=== PATIENT | female | born 1950 | race Caucasian/White ===

== ENCOUNTER 2016-12-11 19:44 | Emergency (ER) | payer MEDICARE ==
[2015-08-14 10:02] VITALS: BMI 43.8
[~2016-12-11 19:44] MED LIST: ATIVAN1 MG PO; CLEOCIN HCL300 MG PO; EFFEXOR75 MG PO; HYDROCODONE-APA1 TAB PO; LEVAQUIN PREMI750 MG PO; LEVAQUIN750 MG PO; MACROBID100 MG PO; NEURONTIN 100100 MG PO; NEURONTIN 300300 MG PO; NEURONTIN600 MG PO; NORCO 7.5/325 T1 TA1 PO; PRILOSEC20 MG PO; PROAIR HFA8.5 GM INH; PROZAC20 MG PO
[2016-12-11 20:42] LABS: BASOPHILS 0.2 % (0.0-2.0); EOSINOPHILS 0.2 % (0-7); HEMATOCRIT 40.3 % (36.0-48.0); HEMOGLOBIN 13.6 g/dL (12-16); IMMATURE GRANULOCYTES 0.4 % (0-5); LYMPHOCYTES 18.8 % (15-50); MCH 31.9 pg (26.0-34.0); MCHC 33.7 g/dL (31.0-37.0); MCV 94.6 fL (80.0-100.0); MEAN PLATELET VOLUME 10.4 fL (7.4-10.4); MONOCYTES 6.6 % (2-11); NEUTROPHILS 73.8 % (40-80); PLATELET COUNT 221 10x3/uL (130-400); RBC 4.26 10x6/uL (4.00-5.40); RDW 12.7 % (11.5-14.5); WBC 10.9 10x3/uL (4.8-10.8)
[2016-12-11 20:53] LABS: ALBUMIN 4.2 g/dL (3.4-5.0); ANION GAP 15.3 mmol/L (8-16); BILIRUBIN - TOTAL 0.62 mg/dL (0.2-1.3); CALCIUM 10.3 mg/dL (8.5-10.1); CARBON DIOXIDE 27.3 mmol/L (21.0-32.0); CREATININE - SERUM 0.9 mg/dL (0.6-1.3); POTASSIUM - SERUM 3.6 mmol/L (3.5-5.1); PROTEIN - SERUM 8.4 g/dL (6.4-8.2)
[2016-12-11 23:31] LABS: APPEARANCE HAZY (CLEAR); BILIRUBIN NEGATIVE (NEGATIVE); COLOR YELLOW (YELLOW); GLUCOSE NEGATIVE (NEGATIVE); KETONE SMALL mg/dL (NEGATIVE); LEUKOCYTE ESTERASE NEGATIVE (NEGATIVE); NITRITE NEGATIVE (NEGATIVE); PROTEIN TRACE mg/dL (NEGATIVE); UROBILINOGEN NORMAL (NORMAL)
[2016-12-11 23:32] LABS: BACTERIA FEW /hpf (NONE SEEN); RED CELLS - URINE 0-5 /hpf (0-5)
== END 2016-12-12 03:00 | disposition home or self-care (01) ==
LOC: D.ER 19:44
PROVIDERS: Emergency Medicine
DX: R10.9 Unspecified abdominal pain (principal); N23 Unspecified renal colic; C50.919 Malignant neoplasm of unspecified site of unspecified female breast; F32.9 Major depressive disorder, single episode, unspecified; M79.7 Fibromyalgia; I45.10 Unspecified right bundle-branch block

== ENCOUNTER → 2017-02-03 09:53 | Outpatient (CLI) | payer MEDICARE ==
[2015-08-14 10:02] VITALS: BMI 43.8
== END | disposition home or self-care (01) ==
LOC: D.CT 09:53
DX: R10.11 Right upper quadrant pain (principal); Z85.3 Personal history of malignant neoplasm of breast

== ENCOUNTER 2017-02-24 11:13 | Outpatient (CLI) | payer MEDICARE ==
[2015-08-14 10:02] VITALS: BMI 43.8
== END 2017-02-24 13:49 ==
LOC: D.MAMMO 11:13
DX: R92.8 Other abnormal and inconclusive findings on diagnostic imaging of breast (principal)

== ENCOUNTER 2017-03-03 15:53 | Emergency (ER) | payer MEDICARE ==
[2015-08-14 10:02] VITALS: BMI 43.8
[2017-03-03 16:39] LABS: BASOPHILS 0.3 % (0-2); EOSINOPHILS 2.9 % (0-7); HEMATOCRIT 40.6 % (36.0-48.0); HEMOGLOBIN 13.4 g/dL (12-16); IMMATURE GRANULOCYTES 0.4 % (0-5); LYMPHOCYTES 24.8 % (15-50); MCH 32.2 pg (26.0-34.0); MCV 97.6 fL (80.0-100.0); MEAN PLATELET VOLUME 10.4 fL (7.4-10.4); MONOCYTES 9.1 % (2-11); NEUTROPHILS 62.5 % (40-80); PLATELET COUNT 213 10x3/uL (130-400); RBC 4.16 10x6/uL (4.00-5.40); RDW 12.7 % (11.5-14.5); WBC 9.7 10x3/uL (4.8-10.8)
[2017-03-03 17:33] LABS: ALBUMIN 3.8 g/dL (3.4-5.0); ANION GAP 13.1 mmol/L (8-16); BILIRUBIN - TOTAL 0.37 mg/dL (0.2-1.3); CALCIUM 8.8 mg/dL (8.5-10.1); CARBON DIOXIDE 27.8 mmol/L (21.0-32.0); CREATININE - SERUM 1.1 mg/dL (0.6-1.3); POTASSIUM - SERUM 3.9 mmol/L (3.5-5.1); PROTEIN - SERUM 7.2 g/dL (6.4-8.2)
[2017-03-03 17:48] LABS: APPEARANCE CLOUDY (CLEAR); COLOR YELLOW (YELLOW); LEUKOCYTE ESTERASE 1+ (NEGATIVE); SPECIFIC GRAVITY 1.015 (1.005-1.020)
[2017-03-03 17:49] LABS: BILIRUBIN NEGATIVE (NEGATIVE); GLUCOSE NEGATIVE (NEGATIVE); KETONE NEGATIVE (NEGATIVE); NITRITE POSITIVE (NEGATIVE); PROTEIN NEGATIVE (NEGATIVE); UROBILINOGEN NORMAL (NORMAL)
[2017-03-03 17:51] LABS: EPITHELIAL CELLS 0-5 /hpf (0-5); RED CELLS - URINE NONE SEEN /hpf (0-5)
[2017-03-03 17:52] LABS: BACTERIA MANY /hpf (NONE SEEN)
== END 2017-03-03 17:56 | disposition home or self-care (01) ==
LOC: D.ER 15:53
PROVIDERS: Nurse Practitioner Acute Care
DX: J01.90 Acute sinusitis, unspecified (principal); R42 Dizziness and giddiness; Z91.81 History of falling; C50.919 Malignant neoplasm of unspecified site of unspecified female breast

== ENCOUNTER 2017-04-01 11:32 | Emergency (ER) | payer MEDICARE ==
[2015-08-14 10:02] VITALS: BMI 43.8
[2017-04-01 12:28] LABS: BASOPHILS 0.5 % (0-2); HEMATOCRIT 40.5 % (36.0-48.0); HEMOGLOBIN 13.5 g/dL (12-16); IMMATURE GRANULOCYTES 0.2 % (0-5); LYMPHOCYTES 25.4 % (15-50); MCH 32.1 pg (26.0-34.0); MCHC 33.3 g/dL (31.0-37.0); MCV 96.2 fL (80.0-100.0); MEAN PLATELET VOLUME 9.9 fL (7.4-10.4); MONOCYTES 8.4 % (2-11); NEUTROPHILS 62.5 % (40-80); PLATELET COUNT 182 10x3/uL (130-400); RBC 4.21 10x6/uL (4.00-5.40); RDW 12.6 % (11.5-14.5); WBC 6.4 10x3/uL (4.8-10.8)
[2017-04-01 12:31] LABS: APPEARANCE CLEAR (CLEAR); BACTERIA MODERATE /hpf (NONE SEEN); BILIRUBIN NEGATIVE (NEGATIVE); COLOR YELLOW (YELLOW); EPITHELIAL CELLS 0-5 /hpf (0-5); GLUCOSE NEGATIVE (NEGATIVE); KETONE NEGATIVE (NEGATIVE); LEUKOCYTE ESTERASE TRACE (NEGATIVE); NITRITE NEGATIVE (NEGATIVE); PROTEIN NEGATIVE (NEGATIVE); RED CELLS - URINE OCC /hpf (0-5); UROBILINOGEN NORMAL (NORMAL); WHITE CELLS - URINE 0-5 /hpf (0-5)
[2017-04-01 12:44] LABS: ALBUMIN 3.9 g/dL (3.4-5.0); ALKALINE PHOSPHATASE 113 U/L (46-116); ALT (SGPT) 28 U/L (10-68); BILIRUBIN - TOTAL 0.67 mg/dL (0.2-1.3); CALC OSMOLALITY 285 mosm/kg (275-300); CALCIUM 8.8 mg/dL (8.5-10.1); CARBON DIOXIDE 29.4 mmol/L (21.0-32.0); CHLORIDE - SERUM 104 mmol/L (98-107); CREATININE - SERUM 0.8 mg/dL (0.6-1.3); GLUCOSE 127 mg/dL (74-106); POTASSIUM - SERUM 3.7 mmol/L (3.5-5.1); PROTEIN - SERUM 7.7 g/dL (6.4-8.2); SODIUM 142 mmol/L (136-145); UREA NITROGEN 15 mg/dL (7-18); eGFR NON AFRICAN AMERICAN 76 mL/min (90-120)
[2017-04-01 12:55] LABS: CKMB 0.3 U/L (0.0-3.6); CREATINE KINASE 42 UL (21-215)
[2017-04-01 13:08] LABS: TROPONIN-I < 0.017 ng/mL (0.000-0.060)
== END 2017-04-01 13:44 | disposition home or self-care (01) ==
LOC: D.ER 11:32
PROVIDERS: Family Medicine
DX: R53.1 Weakness (principal); N39.0 Urinary tract infection, site not specified; Z85.3 Personal history of malignant neoplasm of breast; F32.9 Major depressive disorder, single episode, unspecified; F17.200 Nicotine dependence, unspecified, uncomplicated

== ENCOUNTER 2017-04-07 10:11 | Day surgery (SDC) | payer MEDICARE ==
[~2017-04-07] VITALS: Ht 147.3 cm; Wt 95.9 kg
--- NOTE | ~2017-04-07 | OP ---
PATIENT NAME: MILLER MEYERS MEDICAL RECORD: [id number] :48 LOCATION:D.OPS ADMISSION DATE: SURGEON: DREW SCOTT DO DATE OF OPERATION: 04/07/2017 PROCEDURE: Colonoscopy with polypectomy and biopsies. INDICATIONS FOR PROCEDURE: Hematochezia and lower abdominal pain. SCOPE: Olympus video pediatric colonoscope. MEDICATIONS: Propofol 800 mg IV per anesthesia. WITHDRAWAL TIME: 17 minutes. ESTIMATED BLOOD LOSS: Minimal. COMPLICATIONS: None. FINDINGS: Informed consent was given. The patient was made comfortable with the above medication. After reaching an adequate level of sedation by slow IV push, the patient was placed on her left side. A digital rectal examination was performed and was normal. The endoscope was then advanced under direct visualization to the terminal ileum. The scope was slowly withdrawn and mucosa was carefully examined. Prep quality was excellent. In the ascending colon, there was a single polyp which measured approximately 9 mm in size. It was benign appearing and sessile. It was removed in 1 piece and completely retrieved after removal with a hot snare. There was a second polyp located in the descending colon which was benign appearing and sessile. It measured approximately 5 mm in diameter. It was removed with a hot snare and was not retrieved. In the descending and sigmoid colon, there was evidence of moderate diverticulosis. There was some redundancy of the colon in the sigmoid region which made passage of the endoscope difficult. The patient was placed on her back for a short period of time until the cecum was reached. Very mild counter pressure was used shortly. In the rectum, there were some erythematous sites consistent with possible proctitis. Biopsies were taken of this area to submit for histology. Retroflexion was performed in the rectum with visualization of small nonbleeding internal hemorrhoids. The scope was then withdrawn from the patient. The patient tolerated the procedure well and there were no complications. IMPRESSION: 1. Two polyps as described above, removed with hot snare. 2. Diverticulosis. 3. Internal hemorrhoids. 4. Possible proctitis with biopsies pending. PLAN AND RECOMMENDATIONS: 1. Discharge home when recovery parameters are met. 2. High fiber diet. 3. Continue current medications. 4. Follow up in GI clinic as needed. 5. Await biopsy results with further recommendations to follow if there are abnormalities within those results. 6. Expect to repeat colonoscopy in 5 years based on the number and types of OPERATIVE REPORT [id number] MILLER MEYERS polyps removed. TRANSINT:[id number] Voice Confirmation ID: [id number] DOCUMENT ID: [id number] DREW SCOTT DO CC: [id number] DICTATION DATE: 04/07/17 133 MEAL ATTENDANT: 04/07/17 190 [facility] 04/07/[address] [facility] [address] [id number]
[2017-04-07] MEDS ORDERED: OXYBUTYNIN15 MG/BOTT PO (10:41)
[2017-04-07] MEDS ORDERED: PROTONIX40 MG PO (10:41)
[2017-04-07] MEDS ORDERED: PERCOCET 5-3251 TAB PO (10:41)
[2017-04-07] MEDS ORDERED: ZANTAC150 MG PO (10:42)
[2017-04-07] MEDS ORDERED: MOVANTIK25 MG PO (10:43)
[2017-04-07 10:44] VITALS: Ht 147.3 cm; Wt 95.9 kg
[2017-04-07 11:58] LABS: BASOPHILS 0.5 % (0-2); EOSINOPHILS 0.5 % (0-7); HEMATOCRIT 40.2 % (36.0-48.0); HEMOGLOBIN 13.6 g/dL (12-16); IMMATURE GRANULOCYTES 0.2 % (0-5); LYMPHOCYTES 17.3 % (15-50); MCH 32.1 pg (26.0-34.0); MCHC 33.8 g/dL (31.0-37.0); MCV 94.8 fL (80.0-100.0); MEAN PLATELET VOLUME 10.3 fL (7.4-10.4); NEUTROPHILS 74.5 % (40-80); RBC 4.24 10x6/uL (4.00-5.40); RDW 12.5 % (11.5-14.5); WBC 8.2 10x3/uL (4.8-10.8)
[2017-04-07 12:06] LABS: PLATELET COUNT 226 10x3/uL (130-400)
[2017-04-07 12:11] LABS: ANION GAP 17.2 mmol/L (8-16); CALCIUM 9.2 mg/dL (8.5-10.1); CARBON DIOXIDE 24.8 mmol/L (21.0-32.0); CREATININE - SERUM 0.9 mg/dL (0.6-1.3)
--- NOTE | 2017-04-07 15:28 | NUR ---
1410 FULL LIQUID TRAY GIVEN 1440 PIV DC W/CATHETER TIP INTACT DC TEACHING COMPLETE CALLING FOR RIDE 1515 RIDE PRESENT DC VIA WC W/FRIEND TO ASSIST LIVING PERSONAL FROM FACILITY DRIVING
== END 2017-04-07 15:15 | disposition home or self-care (01) ==
LOC: D.OPS 10:11
PROVIDERS: Anesthesiology
DX: D12.4 Benign neoplasm of descending colon (principal); K92.1 Melena; D12.2 Benign neoplasm of ascending colon; E66.01 Morbid (severe) obesity due to excess calories; Z68.41 Body mass index [BMI] 40.0-44.9, adult; Z01.812 Encounter for preprocedural laboratory examination

== ENCOUNTER 2017-04-21 19:23 | Emergency (ER) | payer MEDICARE ==
[2017-04-07 10:44] VITALS: BMI 44.2
[~2017-04-21 19:23] MED LIST changes: +MOVANTIK25 MG PO; +OXYBUTYNIN15 MG/BOTT PO; +PERCOCET 5-3251 TAB PO; +PROTONIX40 MG PO; +ZANTAC150 MG PO
[2017-04-21 20:28] LABS: BASOPHILS 0.4 % (0-2); HEMATOCRIT 39.7 % (36.0-48.0); HEMOGLOBIN 13.2 g/dL (12-16); IMMATURE GRANULOCYTES 0.3 % (0-5); LYMPHOCYTES 27.1 % (15-50); MCH 31.8 pg (26.0-34.0); MCHC 33.2 g/dL (31.0-37.0); MCV 95.7 fL (80.0-100.0); MEAN PLATELET VOLUME 10.1 fL (7.4-10.4); MONOCYTES 7.8 % (2-11); NEUTROPHILS 62.4 % (40-80); PLATELET COUNT 213 10x3/uL (130-400); RBC 4.15 10x6/uL (4.00-5.40); RDW 12.6 % (11.5-14.5); WBC 10.3 10x3/uL (4.8-10.8)
[2017-04-21 20:35] LABS: INR 1.03 (0.85-1.17); PROTIME 13.3 SECONDS (11.6-15.0)
[2017-04-21 20:44] LABS: ALBUMIN 3.8 g/dL (3.4-5.0); ANION GAP 14.9 mmol/L (8-16); BILIRUBIN - TOTAL 0.3 mg/dL (0.2-1.3); CALCIUM 8.9 mg/dL (8.5-10.1); CARBON DIOXIDE 27.6 mmol/L (21.0-32.0); CREATININE - SERUM 1.1 mg/dL (0.6-1.3); POTASSIUM - SERUM 3.5 mmol/L (3.5-5.1); PROTEIN - SERUM 7.8 g/dL (6.4-8.2)
== END 2017-04-21 23:13 | disposition home or self-care (01) ==
LOC: D.ER 19:23
PROVIDERS: Nurse Practitioner Family
DX: S80.02XA Contusion of left knee, initial encounter (principal); W07.XXXA Fall from chair, initial encounter; Y93.89 Activity, other specified; Y92.129 Unspecified place in nursing home as the place of occurrence of the external cause; S70.01XA Contusion of right hip, initial encounter; M25.511 Pain in right shoulder

== ENCOUNTER 2018-04-17 08:00 | Outpatient (CLI) | payer MEDICARE ==
[2017-04-07 10:44] VITALS: BMI 44.2
== END 2018-04-17 09:00 | disposition home or self-care (01) ==
LOC: D.MAMMO 08:00
DX: Z12.31 Encounter for screening mammogram for malignant neoplasm of breast (principal)

== ENCOUNTER 2018-05-20 09:42 | Inpatient (IN) | payer MEDICARE ==
[~2018-05-20] VITALS: Ht 147.3 cm; Wt 86.4 kg
[2018-05-20] VITALS (7 sets, daily range): BP systolic 120–158; BP diastolic 60–88; Ht 147.3 cm; Wt 86.4 kg
[2018-05-20 10:41] LABS: ALBUMIN 3.8 g/dL (3.4-5.0); ALKALINE PHOSPHATASE 105 U/L (46-116); ALT (SGPT) 24 U/L (10-68); BASOPHILS 0.4 % (0-2); BILIRUBIN - TOTAL 0.41 mg/dL (0.2-1.3); CALC OSMOLALITY 287 mosm/kg (275-300); CALCIUM 10.1 mg/dL (8.5-10.1); CARBON DIOXIDE 25.8 mmol/L (21.0-32.0); CHLORIDE - SERUM 106 mmol/L (98-107); CREATININE - SERUM 0.8 mg/dL (0.6-1.3); EOSINOPHILS 8.5 % (0-7); GLUCOSE 137 mg/dL (74-106); HEMOGLOBIN 13.6 g/dL (12-16); IMMATURE GRANULOCYTES 0.3 % (0-5); LYMPHOCYTES 22.1 % (15-50); MCH 32.4 pg (26.0-34.0); MCV 95.2 fL (80.0-100.0); MEAN PLATELET VOLUME 9.9 fL (7.4-10.4); MONOCYTES 10.2 % (2-11); NEUTROPHILS 58.5 % (40-80); PLATELET COUNT 219 10x3/uL (130-400); POTASSIUM - SERUM 3.8 mmol/L (3.5-5.1); PROTEIN - SERUM 7.9 g/dL (6.4-8.2); RDW 13.1 % (11.5-14.5); SODIUM 143 mmol/L (136-145); UREA NITROGEN 16 mg/dL (7-18); WBC 7.9 10x3/uL (4.8-10.8); eGFR NON AFRICAN AMERICAN 75 mL/min (90-120)
[2018-05-21 04:00] VITALS: BP 179/89
[2018-05-21 06:20] LABS: BASOPHILS 0.4 % (0-2); EOSINOPHILS 8.5 % (0-7); HEMATOCRIT 35.8 % (36.0-48.0); IMMATURE GRANULOCYTES 0.2 % (0-5); LYMPHOCYTES 34.2 % (15-50); MCH 31.4 pg (26.0-34.0); MCHC 33.5 g/dL (31.0-37.0); MCV 93.7 fL (80.0-100.0); MEAN PLATELET VOLUME 9.9 fL (7.4-10.4); MONOCYTES 8.8 % (2-11); NEUTROPHILS 47.9 % (40-80); PLATELET COUNT 183 10x3/uL (130-400); RBC 3.82 10x6/uL (4.00-5.40); RDW 13.1 % (11.5-14.5); WBC 8.1 10x3/uL (4.8-10.8)
[2018-05-21 07:08] LABS: ALBUMIN 3.2 g/dL (3.4-5.0); ALKALINE PHOSPHATASE 83 U/L (46-116); ALT (SGPT) 22 U/L (10-68); BILIRUBIN - TOTAL 0.61 mg/dL (0.2-1.3); CALC OSMOLALITY 282 mosm/kg (275-300); CALCIUM 8.2 mg/dL (8.5-10.1); CARBON DIOXIDE 23.5 mmol/L (21.0-32.0); CHLORIDE - SERUM 109 mmol/L (98-107); CREATININE - SERUM 0.6 mg/dL (0.6-1.3); GLUCOSE 108 mg/dL (74-106); POTASSIUM - SERUM 3.4 mmol/L (3.5-5.1); PROTEIN - SERUM 6.9 g/dL (6.4-8.2); SODIUM 141 mmol/L (136-145); UREA NITROGEN 15 mg/dL (7-18); eGFR NON AFRICAN AMERICAN > 90 mL/min (90-120)
[2018-05-21 09:10] VITALS: BP 138/71
[2018-05-21 20:23] VITALS: BP 157/72
[2018-05-22 04:00] VITALS: BP 155/72
[2018-05-22 06:42] LABS: BASOPHILS 0.4 % (0-2); EOSINOPHILS 11.1 % (0-7); HEMATOCRIT 34.4 % (36.0-48.0); HEMOGLOBIN 11.6 g/dL (12-16); IMMATURE GRANULOCYTES 0.4 % (0-5); LYMPHOCYTES 38.5 % (15-50); MCH 31.8 pg (26.0-34.0); MCHC 33.7 g/dL (31.0-37.0); MCV 94.2 fL (80.0-100.0); MEAN PLATELET VOLUME 9.5 fL (7.4-10.4); MONOCYTES 7.9 % (2-11); NEUTROPHILS 41.7 % (40-80); PLATELET COUNT 183 10x3/uL (130-400); RBC 3.65 10x6/uL (4.00-5.40); RDW 13.3 % (11.5-14.5)
[2018-05-22 07:03] LABS: ALBUMIN 3.2 g/dL (3.4-5.0); ALKALINE PHOSPHATASE 84 U/L (46-116); ALT (SGPT) 19 U/L (10-68); BILIRUBIN - TOTAL 0.31 mg/dL (0.2-1.3); CALCIUM 8.1 mg/dL (8.5-10.1); CARBON DIOXIDE 24.7 mmol/L (21.0-32.0); CHLORIDE - SERUM 109 mmol/L (98-107); GLUCOSE 101 mg/dL (74-106); POTASSIUM - SERUM 3.1 mmol/L (3.5-5.1); PROTEIN - SERUM 6.7 g/dL (6.4-8.2); SODIUM 146 mmol/L (136-145)
[2018-05-22 07:04] LABS: CALC OSMOLALITY 289 mosm/kg (275-300); CREATININE - SERUM 0.8 mg/dL (0.6-1.3); UREA NITROGEN 10 mg/dL (7-18); eGFR NON AFRICAN AMERICAN 75 mL/min (90-120)
[2018-05-22 08:08] VITALS: BP 176/55
[2018-05-22 13:40] VITALS: BP 185/74
[2018-05-22 16:41] VITALS: BP 167/69
[2018-05-22 20:00] VITALS: BP 156/74
[2018-05-23 05:56] LABS: BASOPHILS 0.4 % (0-2); EOSINOPHILS 10.3 % (0-7); HEMATOCRIT 34.8 % (36.0-48.0); HEMOGLOBIN 11.8 g/dL (12-16); IMMATURE GRANULOCYTES 0.5 % (0-5); LYMPHOCYTES 37.5 % (15-50); MCH 31.8 pg (26.0-34.0); MCHC 33.9 g/dL (31.0-37.0); MCV 93.8 fL (80.0-100.0); MEAN PLATELET VOLUME 9.8 fL (7.4-10.4); MONOCYTES 8.3 % (2-11); PLATELET COUNT 200 10x3/uL (130-400); RBC 3.71 10x6/uL (4.00-5.40); RDW 13.3 % (11.5-14.5); WBC 9.4 10x3/uL (4.8-10.8)
[2018-05-23 06:47] LABS: ALBUMIN 3.4 g/dL (3.4-5.0); ALKALINE PHOSPHATASE 90 U/L (46-116); ALT (SGPT) 21 U/L (10-68); BILIRUBIN - TOTAL 0.31 mg/dL (0.2-1.3); CALC OSMOLALITY 286 mosm/kg (275-300); CALCIUM 8.6 mg/dL (8.5-10.1); CARBON DIOXIDE 26.3 mmol/L (21.0-32.0); CHLORIDE - SERUM 109 mmol/L (98-107); CREATININE - SERUM 0.7 mg/dL (0.6-1.3); FERRITIN 172 ng/mL (3-244); GLUCOSE 96 mg/dL (74-106); POTASSIUM - SERUM 3.5 mmol/L (3.5-5.1); PROTEIN - SERUM 6.8 g/dL (6.4-8.2); SODIUM 144 mmol/L (136-145); eGFR NON AFRICAN AMERICAN 88 mL/min (90-120)
[2018-05-23 06:48] LABS: UREA NITROGEN 13 mg/dL (7-18)
[2018-05-23 06:54] LABS: % SATURATION 32 % (15-55); IRON 62 ug/dl (35-150); TOTAL IRON BIND CAPACITY 189 ug/dl (260-445); UNSAT IRON BIND CAPACITY 127 ug/dl (150-375)
[2018-05-23 09:13] VITALS: BP 149/79
[2018-05-23 12:28] VITALS: BP 125/70
[2018-05-23] MEDS ORDERED: LEVAQUIN750 MG PO (13:41)
[2018-05-24 08:19] LABS: FOLATE (FOLIC ACID) - SERUM 6.6 ng/mL (>3.0)
== END 2018-05-23 15:02 | disposition home or self-care (01) | DRG 195 ==
LOC: D.ER 09:42 → D.MS 11:37 → D.EDHOLD 11:37 → D.MS 12:05 → D.SDCHOLD 05-23 11:28 → D.MS 05-23 11:30
PROVIDERS: Family Medicine; Internal Medicine Nephrology
DX: J18.9 Pneumonia, unspecified organism (principal); R53.83 Other fatigue; J45.909 Unspecified asthma, uncomplicated; F32.9 Major depressive disorder, single episode, unspecified; F41.9 Anxiety disorder, unspecified; M79.7 Fibromyalgia; E66.9 Obesity, unspecified; Z68.39 Body mass index [BMI] 39.0-39.9, adult; D64.9 Anemia, unspecified; E87.6 Hypokalemia; Z85.3 Personal history of malignant neoplasm of breast

== ENCOUNTER 2018-12-17 13:52 | Emergency (ER) | payer MEDICARE ==
[~2018-12-17] VITALS: Ht 147.3 cm; Wt 85.0 kg
[2018-12-17 13:54] VITALS: Ht 147.3 cm; Wt 85.0 kg
[2018-12-17 14:51] LABS: BASOPHILS 0.4 % (0-2); EOSINOPHILS 2.4 % (0-7); HEMATOCRIT 37.7 % (36.0-48.0); IMMATURE GRANULOCYTES 0.3 % (0-5); LYMPHOCYTES 17.7 % (15-50); MCH 32.9 pg (26.0-34.0); MCHC 34.5 g/dL (31.0-37.0); MCV 95.4 fL (80.0-100.0); MONOCYTES 16.3 % (2-11); NEUTROPHILS 62.9 % (40-80); PLATELET COUNT 173 10x3/uL (130-400); RBC 3.95 10x6/uL (4.00-5.40); RDW 12.8 % (11.5-14.5); WBC 6.7 10x3/uL (4.8-10.8)
[2018-12-17 15:05] LABS: ALBUMIN 3.6 g/dL (3.4-5.0); ALKALINE PHOSPHATASE 86 U/L (46-116); ALT (SGPT) 17 U/L (10-68); CALC OSMOLALITY 280 mosm/kg (275-300); CALCIUM 8.6 mg/dL (8.5-10.1); CARBON DIOXIDE 26.6 mmol/L (21.0-32.0); CHLORIDE - SERUM 106 mmol/L (98-107); CREATININE - SERUM 0.7 mg/dL (0.6-1.3); GLUCOSE 101 mg/dL (74-106); POTASSIUM - SERUM 3.5 mmol/L (3.5-5.1); PROTEIN - SERUM 7.5 g/dL (6.4-8.2); SODIUM 141 mmol/L (136-145); UREA NITROGEN 12 mg/dL (7-18); eGFR NON AFRICAN AMERICAN 88 mL/min (90-120)
[2018-12-17 16:47] LABS: PRO BNP 173 pg/mL (0-125)
[2018-12-17 16:48] LABS: TROPONIN-I < 0.017 ng/mL (0.000-0.060)
[2018-12-17] MEDS ORDERED: ALBUTEROL SULF8.5 GM INH (17:23)
[2018-12-17] MEDS ORDERED: GUAIFENESI100 MG/5 M PO (17:23)
[2018-12-17 18:02] VITALS: BP 152/84
== END 2018-12-17 18:03 | disposition home or self-care (01) ==
LOC: D.ER 13:52
PROVIDERS: Family Medicine
DX: J20.9 Acute bronchitis, unspecified (principal); J06.9 Acute upper respiratory infection, unspecified

== ENCOUNTER 2019-02-15 19:38 | Observation (INO) | payer MEDICARE ==
[~2019-02-15] VITALS: Ht 147.3 cm; Wt 81.6 kg
[2019-02-15] VITALS (14 sets, daily range): BP systolic 90–141; BP diastolic 41–63
[~2019-02-15 19:38] MED LIST changes: +ALBUTEROL SULF8.5 GM INH; +GUAIFENESI100 MG/5 M PO
--- NOTE | 2019-02-15 19:50 | NUR ---
PT PLACED IN SAFE ROOM, BELONINGS REMOVED AND SECURED AT NURSING STATION. PT CHANGED INTO PAPER SCRUBS TOLERATED WELL. PT 1:1 UNTIL [facility] PERSONNEL ARRIVE FOR ASSESSMENT.
--- NOTE | 2019-02-15 19:52 | NUR ---
POISON CONTROL CALLED AT THIS TIME. STATES TO GET LAB WORK AND HAVE SYPMTOMATIC CARE.
--- NOTE | 2019-02-15 20:00 | NUR ---
PSYCH PERSONNEL AT BEDSIDE FOR ASSESSEMENT
--- NOTE | 2019-02-15 20:00 | NUR ---
The patient did overdose today and she says she wishes to . According to her suicide assessment she will require 1:1 observation.
--- NOTE | 2019-02-15 21:00 | NUR ---
PT LYING IN STRECHER AT THIS TIME EYES CLOSED RESP EVEN AND UNLABORED PSYCH SITTER AT BEDSIDE
[2019-02-15 21:16] LABS: APPEARANCE HAZY (CLEAR); BILIRUBIN NEGATIVE (NEGATIVE); COLOR YELLOW (YELLOW); GLUCOSE NEGATIVE (NEGATIVE); KETONE NEGATIVE (NEGATIVE); NITRITE NEGATIVE (NEGATIVE); PROTEIN TRACE mg/dL (NEGATIVE); UROBILINOGEN NORMAL (NORMAL)
[2019-02-15 21:17] LABS: RED CELLS - URINE NONE SEEN /hpf (0-5); WHITE CELLS - URINE >50 /hpf (0-5)
[2019-02-15 21:18] LABS: BACTERIA MANY /hpf (NONE SEEN); EPITHELIAL CELLS 0-5 /hpf (0-5); UDS - AMPHET NEGATIVE QUAL (NEGATIVE); UDS - BARB NEGATIVE QUAL (NEGATIVE); UDS - BENZO NEGATIVE QUAL (NEGATIVE); UDS - COCAINE NEGATIVE QUAL (NEGATIVE); UDS - OPIATE POSITIVE QUAL (NEGATIVE); UDS - PCP NEGATIVE QUAL (NEGATIVE); UDS - THC NEGATIVE QUAL (NEGATIVE)
[2019-02-15 21:28] LABS: BASOPHILS 0.6 % (0-2); EOSINOPHILS 0.9 % (0-7); HEMATOCRIT 39.1 % (36.0-48.0); HEMOGLOBIN 13.5 g/dL (12-16); IMMATURE GRANULOCYTES 0.2 % (0-5); LYMPHOCYTES 25.7 % (15-50); MCH 33.2 pg (26.0-34.0); MCHC 34.5 g/dL (31.0-37.0); MCV 96.1 fL (80.0-100.0); MEAN PLATELET VOLUME 9.7 fL (7.4-10.4); MONOCYTES 7.5 % (2-11); NEUTROPHILS 65.1 % (40-80); RBC 4.07 10x6/uL (4.00-5.40); RDW 12.8 % (11.5-14.5); WBC 8.8 10x3/uL (4.8-10.8)
[2019-02-15 21:30] LABS: PLATELET COUNT 211 10x3/uL (130-400)
[2019-02-15 21:45] LABS: ALBUMIN 3.7 g/dL (3.4-5.0); ANION GAP 10.9 mmol/L (8-16); BILIRUBIN - TOTAL 0.45 mg/dL (0.2-1.3); CALCIUM 9.2 mg/dL (8.5-10.1); CARBON DIOXIDE 27.8 mmol/L (21.0-32.0); CREATININE - SERUM 0.9 mg/dL (0.6-1.3); POTASSIUM - SERUM 3.7 mmol/L (3.5-5.1); PROTEIN - SERUM 7.3 g/dL (6.4-8.2)
[2019-02-15 21:54] LABS: ACETAMINOPHEN 13.8 ug/mL (10.0-30.0); MAGNESIUM - SERUM 2.2 mg/dL (1.8-2.4); THYROID STIMULATING HORMONE 2.11 uIU/mL (0.36-3.74)
--- NOTE | 2019-02-15 22:00 | NUR ---
PT PLACED ON BED REYES AT THIS TIME TO URINATE. URINE X 1. PT GIVEN WATER TO DRINK. SITTER AT BEDSIDE.
--- NOTE | 2019-02-15 23:00 | NUR ---
PT SITTING ON STRECHER WATCHING TV THIS TIME. PT DENIES NEEDS. SITTER AT BEDSIDE.
[2019-02-16] VITALS (18 sets, daily range): BP systolic 101–174; BP diastolic 46–101; Ht 147.3 cm; Wt 81.6 kg
--- NOTE | 2019-02-16 | NUR ---
SITTER AT BEDSIDE PT LYING ON STRECHER EYES CLOSED RESP EVEN AND UNLABORED.
--- NOTE | 2019-02-16 01:00 | NUR ---
RECIEVED PATIENT FROM ED VIA STRETCHER. PT ALERT AND ORIENTED TO PERSON, PLACE, TIME AND SITUATION. LT HAND PIV, SITE WITHOUT REDNESS OR EDEMA WITH NS @ 125CC/HR VIA PUMP. SITTER AT BEDSIDE. SR ON THE MONITOR. DENIES ANY NEEDS AT THIS TIME.
--- NOTE | 2019-02-16 02:26 | NUR ---
FACESHEET FAXED TO ASSISTED FOR CONSULT
--- NOTE | 2019-02-16 04:01 | NUR ---
EYES CLOSED, RESP EVEN AND UNLABORED. SR ON THE MONITOR. SITTER AT BEDSIDE.
[2019-02-16] MEDS ORDERED: SONATA PO (05:09)
[2019-02-16] MEDS ORDERED: OXYBUTYNIN CHLOR5 MG PO (05:09)
[2019-02-16] MEDS ORDERED: ATIVAN1 MG PO (05:09)
[2019-02-16] MEDS ORDERED: NEURONTIN600 MG PO (05:10)
[2019-02-16] MEDS ORDERED: HYDROCODON-ACE1 EA10 PO (05:10)
[2019-02-16] MEDS ORDERED: EFFEXOR XR150 MG PO (05:11)
[2019-02-16] MEDS ORDERED: RANITIDINE HCL150 M1 PO (05:11)
--- NOTE | 2019-02-16 06:22 | NUR ---
EYES CLOSED, RESP EVEN AND UNLABORED. SR ON THE MONITOR. SITTER AT BEDSIDE.
--- NOTE | 2019-02-16 09:51 | NUR ---
PT DENIES SI BUT DID STATE THAT SHE KNOWS SHE NEEDS SOME HELP. SITTER AT BEDSIDE.
--- NOTE | 2019-02-16 14:24 | NUR ---
0700 AWAKE ALERT IN BED SITTER REMAINS AT BEDSIDE NO DISTRESS NOTED ROOM APPROPRIETLY SECURED WITH DANGEROU ITEMS REMOVED
--- NOTE | 2019-02-16 14:34 | NUR ---
0900 REMAINS CALM WATCHING TV
--- NOTE | 2019-02-16 14:35 | NUR ---
1100 LUNCH TRAY SERVED SITTER REMAINS AT BEDSIDE SAFETY PRECAUTIONS
--- NOTE | 2019-02-16 14:39 | NUR ---
1300 VOIDED IN BEDPAN WITH ASSSIST
--- NOTE | 2019-02-16 15:50 | NUR ---
1500 ASLEEP IN BED SITTER REMAINS AT BEDSIDE
--- NOTE | 2019-02-16 16:34 | NUR ---
1600 DR FUNK ASSESSING PATIENT IN ROOM
--- NOTE | 2019-02-16 17:06 | MORECARE ---
CASE MANAGEMENT DISCHARGE SUMMARY PATIENT: MILLER MEYERS UNIT: [id number] ADM DATE: 02/15/19 AGE: 68 : 49 SEX: F ROOM/BED: D.[facility]3 AUTHOR: BEHZAD AMOS PHYSICIAN: REFERRING PHYSICIAN: YUSUF ROBERTS MD DATE OF SERVICE: 02/16/19 Discharge Plan Patient Name: MILLER MEYERS Facility: [facility]:[place] : 1950 Planned Disposition: Psych facility Anticipated Discharge Date: Discharge Date: Expected LOS: Initial Reviewer: [email or web address] Initial Review Date: 02/16/2019 Generated: 02/16/19 6:06 pm Patient Name: MILLER MEYERS Page [phone] at 1706 All edits/amendments must be made on the electronic document DICTATION DATE: 02/16/191704 DIRECTOR SUPPLIER QUALITY: OLESYA 02/16/191704 RPT#: [id number] DC DATE: STATUS: ADM IN [facility] [address] [place] [address] END OF REPORT
--- NOTE | 2019-02-16 17:15 | MORECARE ---
CASE MANAGEMENT DISCHARGE SUMMARY PATIENT: MILLRE MEYERS UNIT: [id number] ADM DATE: 02/15/19 AGE: 68 : 49 SEX: F ROOM/BED: D.2313 AUTHOR: BEHZAD AMOS PHYSICIAN: REFERRING PHYSICIAN: YUSUF ROBERTS MD DATE OF SERVICE: 02/16/19 Discharge Plan Patient Name: MILLER MEYERS Facility: [facility]:[place] : 1950 Planned Disposition: Psych facility Anticipated Discharge Date: Discharge Date: Expected LOS: Initial Reviewer: [email or web address] Initial Review Date: 02/16/2019 Generated: 02/16/19 6:15 pm Comments DCP- Discharge Planning Updated by [email or web address]: Evelyn Downs on 02/16/19 4:[address] Patient Name: MILLER MEYERS Admission Status: ER Accout number: [id number] Admission Date: 02-15-2019 : 1950 Admission Diagnosis: Attending: YUSUF ROBERTS Current LOS: 1 Anticipated DC Date: Planned Disposition: Psych facility Primary Insurance: [employer] [facility] PF Discharge Planning Comments: PLAN FOR PATIENT TO GO TO INPATIENT PSYCH @ [facility]. PATIENT IS MEDICALLY STABLE FOR D/C. PATIENT AGREES TO GO TO PSYCH FACILITY. CM WILL CONTINUE TO FOLLOW AND ASSIST NEEDED. Marine Engineer: Evelyn Downs Last DP export: 02/16/19 4:06 p Patient Name: MILLER MEYERS Page [id number] at 1715 All edits/amendments must be made on the electronic document DICTATION DATE: 02/16/191713 FIELD IDENTIFICATION SPECIALIST: OLESYA 02/16/191713 RPT#: [id number] DC DATE: STATUS: ADM IN [address] [address] [place] [address] END OF REPORT
--- NOTE | 2019-02-16 17:39 | NUR ---
[address] ROBERTS. HE MEDICALLY CLEARED PATIENT FOR DISCHARGE
--- NOTE | 2019-02-16 17:45 | NUR ---
1730 DINNER COMPLETE APPETITE GOOD CALLED REPORT TO [facility] IN [facility] TO BE ASSIGNED TO ROOM 1124.
--- NOTE | 2019-02-16 18:37 | NUR ---
1830 TRANSPORTED VIA TO SENIOR CAR WITH PERSONAL BELONGINGS
--- NOTE | 2019-02-19 09:45 | MORECARE ---
CASE MANAGEMENT DISCHARGE SUMMARY PATIENT: MILLER MEYERS UNIT: [id number] ADM DATE: 02/15/19 AGE: 68 : 49 SEX: F ROOM/BED: D.2313 AUTHOR: BEHZAD AMOS PHYSICIAN: REFERRING PHYSICIAN: YUSUF ROBERTS MD DATE OF SERVICE: 02/19/19 Discharge Plan Patient Name: MILLER MEYERS Facility: [facility]:[place] : 1950 Planned Disposition: Psych facility Anticipated Discharge Date: Discharge Date: 02/16/2019 Expected LOS: Initial Reviewer: [email or web address] Initial Review Date: 02/16/2019 Generated: 02/19/19 10:44 am Comments DCP- Discharge Planning Updated by [email or web address]: Evelyn Downs on 02/16/19 4:[address] Patient Name: MILLER MEYERS Admission Status: ER Accout number: [id number] Admission Date: 02-15-2019 : 1950 Admission Diagnosis: Attending: YUSUF ROBERTS Current LOS: 1 Anticipated DC Date: Planned Disposition: Psych facility Primary Insurance: [employer] [facility] PF Discharge Planning Comments: PLAN FOR PATIENT TO GO TO INPATIENT PSYCH @ [facility]. PATIENT IS MEDICALLY STABLE FOR D/C. PATIENT AGREES TO GO TO PSYCH FACILITY. CM WILL CONTINUE TO FOLLOW AND ASSIST NEEDED. Music Publicist: Evelyn Downs Last DP export: 02/16/19 4:15 p Patient Name: MILLER MEYERS Page [id number] at 0945 All edits/amendments must be made on the electronic document DICTATION DATE: 02/19/19943 PRODUCTION FLOATER: OLESYA 02/19/1945 RPT#: [id number] DC DATE:02/16/19 STATUS: DIS IN [facility] [address] [place] [address] END OF REPORT
== END 2019-02-16 18:30 | disposition short-term general hospital (02) ==
LOC: D.ER 19:38 → D.ICU 21:41 → OBSVTIME 21:41 → D.ICU 02-16 18:30
PROVIDERS: Emergency Medicine; ADMIT Internal Medicine Nephrology; ATTEND Internal Medicine Nephrology
DX: T40.2X2A Poisoning by other opioids, intentional self-harm, initial encounter (principal); N17.9 Acute kidney failure, unspecified; I10 Essential (primary) hypertension; E66.9 Obesity, unspecified; F41.8 Other specified anxiety disorders; N39.0 Urinary tract infection, site not specified; Z85.3 Personal history of malignant neoplasm of breast; F33.9 Major depressive disorder, recurrent, unspecified

== ENCOUNTER 2019-02-16 19:00 | Inpatient (IN) | payer MEDICARE ==
[~2019-02-16] VITALS: Ht 147.3 cm; Wt 83.7 kg
[~2019-02-16 19:00] MED LIST changes: +EFFEXOR XR150 MG PO; +HYDROCODON-ACE1 EA10 PO; +OXYBUTYNIN CHLOR5 MG PO; +RANITIDINE HCL150 M1 PO; +SONATA PO
--- NOTE | 2019-02-17 00:51 | NUR ---
PATIENT ARRIVED AT 1830, ARRIVED FROM ICU FOLLOWING OVERDOSE NO PILLS, CALM AND COOPERATIVE, FULL CODE, CODE WORD IS 'FINESSE' , AMBULETS INDEPENDANTLY, ALERT AND ORIENTED, DEPENDS FOR EPISODES OF INCONT., CONTRACTS FOR SAFETY, WILL CONTINUE TO MONITOR.
[2019-02-17 01:06] VITALS: BP 146/84; BMI 38.9
[2019-02-17 03:14] LABS: BASOPHILS 0.4 % (0-2); HEMATOCRIT 36.1 % (36.0-48.0); HEMOGLOBIN 12.3 g/dL (12-16); IMMATURE GRANULOCYTES 0.3 % (0-5); LYMPHOCYTES 22.2 % (15-50); MCH 31.9 pg (26.0-34.0); MCHC 34.1 g/dL (31.0-37.0); MEAN PLATELET VOLUME 9.7 fL (7.4-10.4); NEUTROPHILS 66.1 % (40-80); PLATELET COUNT 199 10x3/uL (130-400); RBC 3.85 10x6/uL (4.00-5.40); RDW 12.5 % (11.5-14.5)
[2019-02-17 03:19] LABS: MCV 93.8 fL (80.0-100.0)
[2019-02-17 03:35] LABS: ALBUMIN 3.6 g/dL (3.4-5.0); ALKALINE PHOSPHATASE 92 U/L (46-116); BILIRUBIN - TOTAL 0.38 mg/dL (0.2-1.3); CALC OSMOLALITY 283 mosm/kg (275-300); CALCIUM 9.1 mg/dL (8.5-10.1); CARBON DIOXIDE 26.2 mmol/L (21.0-32.0); CHLORIDE - SERUM 106 mmol/L (98-107); CHOL - HDL RATIO 3.1 ratio (2.3-4.1); CHOLESTEROL, TOTAL 185 mg/dL (0-200); GLUCOSE 97 mg/dL (74-106); HDL CHOLESTEROL 60 mg/dL (32-96); LDL CHOLESTEROL 109 mg/dL (0-100); LDL-HDL RATIO 1.8 ratio (1.5-3.5); POTASSIUM - SERUM 3.7 mmol/L (3.5-5.1); SODIUM 141 mmol/L (136-145); THYROID STIMULATING HORMONE 3.13 uIU/mL (0.36-3.74); TRIGLYCERIDE 82 mg/dL (30-200); UREA NITROGEN 22 mg/dL (7-18)
[2019-02-17 03:37] LABS: ALT (SGPT) 22 U/L (10-68); CREATININE - SERUM 0.6 mg/dL (0.6-1.3); eGFR NON AFRICAN AMERICAN > 90 mL/min (90-120)
--- NOTE | 2019-02-17 03:48 | NUR ---
B.) Patient is Alert and oriented x4. Patient ambulates by herself. I.) Assess for needs and orient to the unit. R.) Compliant with unit milleu. P.) Continue Plan of Care
[2019-02-17 09:29] VITALS: BP 160/84
[2019-02-17 11:51] VITALS: BMI 38.8
--- NOTE | 2019-02-17 11:54 | CN ---
PATIENT NAME:MILLER MEYERS MEDICAL RECORD: [id number] : 48 LOCATION:[id number] ADMIT DATE: 02/16/19 ACCOUNT: [id number] CONSULTING PHYSICIAN: MITALI FUNK MD REFERRING PHYSICIAN: MITALI FUNK MD DATE OF CONSULTATION: 02/16/2019 IDENTIFYING DATA: The patient is 68 years old and she is admitted to the hospital on a voluntary basis. CHIEF COMPLAINT: Suicidal thoughts. HISTORY OF PRESENT ILLNESS: The patient took 7 to 10 hydrocodone in an attempt to harm herself. She says she also took Ativan, but her urine drug screen is negative for this. She endorses numerous neurovegetative symptoms along with numerous psychosocial stressors. She apparently called a relative in [place] to tell the relative good bye. The relative in [place] called the EMS. The patient has made multiple statements to various staff members since she has been here about intending to kill herself. She is now back pedaling on that somewhat. MENTAL STATUS EXAMINATION: The patient is awake, alert, and fully oriented. Her mood is depressed. Her affect is constricted. Thought processes are circumstantial. Memory, concentration, and abstraction abilities are mildly impaired. She denies active intent to harm herself, has no thoughts of harming others and denies psychotic symptoms. ASSESSMENT: Major depression, moderate severity, recurrent without psychotic features. PLAN: The patient no longer requires a sitter; however, she should be in visual line of sight and have q.15-minute checks. I recommend that she be transferred to the inpatient behavioral unit as soon as she is considered medically stable. She will undergo a comprehensive evaluation there and she is agreeable to this plan. TRANSINT:[id number] Voice Confirmation ID: [id number] DOCUMENT ID: [id number] MITALI FUNK MD at 1154 CC: [id number] DICTATION DATE: 02/16/19 1618 HAULAGE ENGINE OPERATOR: 02/16/19 2248 ADM IN [facility] [address] [place] [address]
--- NOTE | 2019-02-17 14:34 | NUR ---
B) The patient is alert and she is oriented to person and place. She discusses her situation and she is able to articulate some things. She does have some short term memory deficits. She is sitting with another patient and I did hear her say she was going to give her record player to her. She is pleasant and interacts well with staff and peers. I) Provide prescribed meds, Encourage the patient to contract for no self harm. R) The patient denies feeling suicidal. She contracts foe no self harm. She is compliant with meds. She ambulates easily with a walker. P) Continue POC.
[2019-02-17 22:04] VITALS: BP 190/102
--- NOTE | 2019-02-18 00:21 | NUR ---
B.) Patient is plesant and socializes well with other residents. I.) Provided PM medications. R.) Patient is compliant with all PM medications. P.) Continue Plan of Care
[2019-02-18 07:00] VITALS: BP 133/68
--- NOTE | 2019-02-18 13:01 | PSY ---
PATIENT NAME:MILLER MEYERS MEDICAL RECORD: [id number] : [birth year] LOCATION:[facility] [place] ADMISSION DATE: 02/16/19 ACCOUNT: [id number] PSYCHIATRIC EVALUATION DATE OF EVALUATION: 02/17/19 IDENTIFYING DATA: The patient is 68 years old and she is admitted to the hospital secondary to an overdose. CHIEF COMPLAINT: Depression. HISTORY OF PRESENT ILLNESS: The patient apparently took about 10 hydrocodone in an attempt to kill herself. She was admitted to the ICU for evaluation and stabilization and then transferred here. She says she did this because of conflict with her family. It is difficult to follow the different persons in the story, but I do not think that is evidence of some sort of serious cognitive impairment. I just think it is her being upset and the circumstances are quite complicated, but basically the bottom line is she has had some conflict with her family and became suicidal. She denies psychotic symptoms. Today, she denies that she would seek to harm herself. PAST MEDICAL HISTORY: Significant for hypertension. She also has a history of breast cancer and had a right mastectomy 4 years ago. She has fibromyalgia and history of urinary tract infections. PAST PSYCHIATRIC HISTORY: Significant for ongoing problems with depression and anxiety, but she says she has never attempted to hurt herself in the past and this is her first hospitalization for psychiatric reasons. FAMILY HISTORY: Unknown. ALLERGIES: PENICILLIN, SULFA, MORPHINE AND PREDNISONE. CURRENT MEDICATIONS: Include Levaquin, ranitidine, venlafaxine, gabapentin, oxybutynin, and Ativan. SOCIAL HISTORY: The patient is . Her about 10 years ago. She had 2 children, one of her children was killed about 25 years ago. The other is a daughter who lives in [place] and has 2 children. The patient is a former smoker. She has no history of alcohol abuse and no history of recreational drug use. MENTAL STATUS EXAMINATION: The patient is alert and oriented to person, place, time, and situation. Her mood is depressed. Her affect is constricted. Thought processes are circumstantial. Memory, concentration, and abstraction abilities are mildly impaired and she denies any intent to harm herself or others as well as active psychotic symptoms. ASSETS: Supportive family members. LIABILITIES: Limited insight. DIAGNOSTIC IMPRESSION: AXIS I: Major depression, moderate severity, recurrent without psychotic features. AXIS II: Deferred. AXIS III: Hypertension, obesity, history of breast cancer, status post multiple drug overdose. AXIS IV: Moderate. AXIS V: Global assessment of functioning is 40. PLAN: At this time, the patient is admitted to the hospital secondary to an overdose associated with depressive symptoms. She has a high level of psychosocial stressors and at this point is actually homeless. She will be evaluated from both a medical, psychological, and social standpoint. She will be treated with both antidepressant medications and individual and group psychotherapy. Her long-term prognosis is guarded. TRANSINT:[id number] Voice Confirmation ID: [id number] DOCUMENT ID: [id number] MITALI FUNK MD at 1301 CC: [id number] DICTATION DATE: 02/17/19 1209 HASHER MACHINE OPERATOR: 02/17/19 1225 ADM IN [id number] [place] [address]
[2019-02-18 13:34] VITALS: Ht 147.3 cm; Wt 83.7 kg
--- NOTE | 2019-02-18 18:37 | NUR ---
ALERT AND ORIENTED.DENIES SUICIDAL IDEATION.COMPLIANT WITH STAFF AND MEDS.WILL CONTINUE WITH PLAN OF CARE,MONITOR FOR CHANGES AND SAFETY.
[2019-02-18 23:14] VITALS: BP 150/79
--- NOTE | 2019-02-18 23:39 | NUR ---
B.) Patient is alert and oriented X4. She ambulates well by herself and has a walker to use PRN. I.) Provided PM medications. R.) Compliant with all medications. P.) Continue Plan of Care.
[2019-02-19 07:00] VITALS: BP 156/78
--- NOTE | 2019-02-19 11:00 | NUR ---
PATIENT IS AWAKE AND ORIENTED X 4. DENIES SUICIDAL IDEATION. CALM AND COOPERATIVE WITH CARE AND ASSESSMENT. MEDICATION COMPLIANT. WILL CONTINUE PLAN OF CARE.
--- NOTE | 2019-02-19 15:13 | PN ---
PATIENT:MILLER MEYERS MEDICAL RECORD: [id number] LOCATION:[facility] [place] ADMISSION DATE: 02/16/19 PROGRESS NOTE DATE OF SERVICE: 02/18/2019 SUBJECTIVE: The patient's case was discussed with staff. She has no new complaint. OBJECTIVE: The patient denies that she would seek to harm herself or others. She is tolerating her medicines well. ASSESSMENT: Major depression. PLAN: Current medicines have been reviewed and will be maintained. Long-term prognosis is guarded. TRANSINT:[id number] Voice Confirmation ID: [id number] DOCUMENT ID: [id number] MITALI FUNK MD at 1513 CC: [id number] DICTATION DATE: 02/18/19 1305 OIL BURNER TECHNICIAN: 02/18/19 1644 ADM IN [id number] [place] [address]
--- NOTE | 2019-02-19 21:48 | NUR ---
RECEIVED IN DAYROOM. SITTING IN A CHAIR WITH PEERS AT HER SIDE. CALM AND COOPERATIVE WITH CARE AND ASSESSMENT. DENIES THOUGHTS OF SELF HARM. ENCOURAGE TO EXPRESS NEEDS. RESTING IN BED WITH EYES CLOSED AT THIS TIME. CONTINUE PLAN OF CARE
[2019-02-20 05:15] VITALS: BP 183/82
[2019-02-20 06:11] LABS: VITAMIN D 25 HYDROXY 7.2 ng/mL (30.0-100.0)
[2019-02-20 07:18] LABS: RAPID PLASMA REAGIN Non Reactive (Non Reactive)
[2019-02-20 08:13] LABS: FOLATE (FOLIC ACID) - SERUM 4.2 ng/mL (>3.0)
[2019-02-20 11:56] VITALS: BP 131/89
--- NOTE | 2019-02-20 14:16 | NUR ---
IS ORIENTED TO SELF ON ASSESSMENT.DID RECALL REASON FOR BEING HERE POST REMINDING BY THIS NURSE.DENIES SUICIDAL THOUGHTS.AMBULATORY WITH WALKER.COMPLIANT WITH STAFF AND MEDS.WILL CONTINUE WITH PLAN OF CARE,MONITOR FOR CHANGES AND SAFETY.
--- NOTE | 2019-02-20 15:19 | PN ---
PATIENT:MILLER MEYERS MEDICAL RECORD: [id number] LOCATION:[facility] [place] ADMISSION DATE: 02/16/19 PROGRESS NOTE DATE OF SERVICE: 02/19/2019 SUBJECTIVE: The patient's case was discussed with staff. She has no new complaint. OBJECTIVE: The patient denies intent to harm herself or others. She is tolerating her medicines well. ASSESSMENT: Major depression. PLAN: The patient was interviewed by [facility] today. I anticipate she can be discharged to that facility if they will accept her. TRANSINT:[id number] Voice Confirmation ID: [id number] DOCUMENT ID: [id number] MITALI FUNK MD at 1519 CC: [id number] DICTATION DATE: 02/19/19 1528 METAL LEAF LAYER: 02/19/19 1710 ADM IN [facility] [address] [id number]
[2019-02-20] MEDS ORDERED: MACROBID100 MG PO (15:33)
[2019-02-20] MEDS ORDERED: FLORAJEN3 CAPS460 MG PO (15:33)
--- NOTE | 2019-02-20 20:16 | NUR ---
RECEIVED IN BEDROOM. RESTING IN BED WITH EYES CLOSED. CALM AND COOPERATIVE WITH CARE AND ASSESSMENT. DENIES THOUGHTS OF SELF HARM. ENCOURAGE TO EXPRESS NEEDS. RESTING IN BED WITH EYES CLOSED. CONTINUE PLAN OF CARE
[2019-02-21 01:35] VITALS: BP 130/70
[2019-02-21 09:10] VITALS: BP 124/54
--- NOTE | 2019-02-21 12:39 | PN ---
PATIENT:MILLER MEYERS MEDICAL RECORD: [id number] LOCATION:[facility] [place] ADMISSION DATE: 02/16/19 PROGRESS NOTE DATE OF SERVICE: 02/20/2019 SUBJECTIVE: The patient's case was discussed with staff. She has no new complaint. OBJECTIVE: The patient is in good behavioral control with no thoughts of harming herself or others. She tolerates her medicines well. ASSESSMENT: Major depression. PLAN: Current medicines and therapies have been reviewed and will be maintained. Long-term prognosis is guarded. I anticipate she can be transitioned out of the hospital tomorrow. TRANSINT:[id number] Voice Confirmation ID: [id number] DOCUMENT ID: [id number] MITALI FUNK MD at 1239 CC: [id number] DICTATION DATE: 02/20/19 1532 CLOTH STRETCHER: 02/20/19 194 ADM IN [facility] [address] [place] [address]
--- NOTE | 2019-02-21 13:30 | NUR ---
IS ORIENTED TO SELF,HOSPITAL AND MONTH.KNOWS IT'S TUESDAY AND SHE IS GOING TO HER NEW HOME.IS EXCITED TO BE GOING HOME AND HAS BEEN TALKING ABOUT IT ALL DAY.IS COMPLIANT WITH STAFF AND PEERS.DENIES THOUGHTS OF WANTING TO HARM HERSELF AND WILL TELL A FRIEND OR FAMILY MEMBER IF SUCH THOUGHT SHOULD ARISE.[place] STAFF HERE TO TRANSPORT.HAS ALL PERSONAL ITEMS AND INSTRUCTIONS.
--- NOTE | 2019-02-22 08:21 | PN ---
PATIENT:MILLER MEYERS MEDICAL RECORD: [id number] LOCATION:[facility] [place] ADMISSION DATE: 02/16/19 PROGRESS NOTE DATE OF SERVICE: 02/21/2019 SUBJECTIVE: The patient's case was discussed with staff. She has no new complaint. OBJECTIVE: The patient denies intent to harm herself or others. She is tolerating her medicines well. Eye contact is fair. ASSESSMENT: Major depression. PLAN: The patient will be discharged to the [facility] [place] today. Her long-term prognosis is guarded. TRANSINT:[id number] Voice Confirmation ID: [id number] DOCUMENT ID: [id number] MITALI FUNK MD at 0821 CC: [id number] DICTATION DATE: 02/21/19 1404 DIRECTOR CORPORATE: 02/21/19 1437 DIS IN 02/21/19 [id number] [place] [address]
== END 2019-02-21 13:30 | disposition home or self-care (01) | DRG 885 ==
LOC: D.PSYCH 19:00
PROVIDERS: ADMIT Psychiatry & Neurology Psychiatry; ATTEND Psychiatry & Neurology Psychiatry
DX: F33.1 Major depressive disorder, recurrent, moderate (principal); N39.0 Urinary tract infection, site not specified; I10 Essential (primary) hypertension; E66.9 Obesity, unspecified; Z68.38 Body mass index [BMI] 38.0-38.9, adult; K21.9 Gastro-esophageal reflux disease without esophagitis; Z85.3 Personal history of malignant neoplasm of breast; M19.90 Unspecified osteoarthritis, unspecified site

== ENCOUNTER 2019-05-31 08:00 | Outpatient (CLI) | payer MEDICARE ==
[2019-02-18 13:34] VITALS: BMI 38.5
[~2019-05-31 08:00] MED LIST changes: +FLORAJEN3 CAPS460 MG PO
== END 2019-05-31 08:01 | disposition home or self-care (01) ==
LOC: D.MAMMO 08:00
PROVIDERS: ATTEND Family Medicine
DX: Z12.31 Encounter for screening mammogram for malignant neoplasm of breast (principal)

== ENCOUNTER 2019-12-18 21:43 | Emergency (ER) | payer MEDICARE ==
[~2019-12-18] VITALS: Ht 147.3 cm; Wt 84.5 kg
[2019-12-18 21:45] VITALS: Ht 147.3 cm; Wt 84.5 kg
[2019-12-18] MEDS ORDERED: CELEBREX200 MG PO (21:57)
[2019-12-18] MEDS ORDERED: MACROBID100 MG PO (21:58)
[2019-12-18] MEDS ORDERED: PEPCID INJ20 MG/2 ML IV (21:58)
[2019-12-18] MEDS ORDERED: OXYBUTYNIN CHLOR5 MG PO (21:59)
[2019-12-18] MEDS ORDERED: MUPIROCIN15 GM TOPICAL (21:59)
[2019-12-18] MEDS ORDERED: ULTRAM50 MG PO (22:00)
[2019-12-18 22:09] LABS: BASOPHILS 0.5 % (0-2); EOSINOPHILS 3.6 % (0-7); HEMOGLOBIN 11.8 g/dL (12-16); IMMATURE GRANULOCYTES 0.1 % (0-5); MCH 30.8 pg (26.0-34.0); MCHC 32.8 g/dL (31.0-37.0); MEAN PLATELET VOLUME 9.7 fL (7.4-10.4); MONOCYTES 7.6 % (2-11); NEUTROPHILS 54.2 % (40-80); PLATELET COUNT 215 10x3/uL (130-400); RBC 3.83 10x6/uL (4.00-5.40); RDW 13.3 % (11.5-14.5); WBC 9.4 10x3/uL (4.8-10.8)
[2019-12-18 22:26] LABS: CALC OSMOLALITY 279 mosm/kg (275-300); CALCIUM 8.4 mg/dL (8.5-10.1); CARBON DIOXIDE 25.6 mmol/L (21.0-32.0); CHLORIDE - SERUM 104 mmol/L (98-107); CREATININE - SERUM 0.7 mg/dL (0.6-1.3); GLUCOSE 84 mg/dL (74-106); POTASSIUM - SERUM 3.7 mmol/L (3.5-5.1); SODIUM 139 mmol/L (136-145); UREA NITROGEN 21 mg/dL (7-18); eGFR NON AFRICAN AMERICAN 88 mL/min (90-120)
[2019-12-18 22:33] LABS: ALBUMIN 3.8 g/dL (3.4-5.0); ALKALINE PHOSPHATASE 117 U/L (30-120); ALT (SGPT) 17 U/L (10-68); AMYLASE - SERUM 41 U/L (25-115); BILIRUBIN - TOTAL 0.31 mg/dL (0.2-1.3); LIPASE 64 U/L (73-393); PROTEIN - SERUM 7.4 g/dL (6.4-8.2)
[2019-12-18 22:40] LABS: BILIRUBIN NEGATIVE (NEGATIVE); GLUCOSE NEGATIVE (NEGATIVE); KETONE NEGATIVE (NEGATIVE); NITRITE NEGATIVE (NEGATIVE); SPECIFIC GRAVITY 1.015 (1.005-1.020); UROBILINOGEN NORMAL (NORMAL)
[2019-12-18] MEDS ORDERED: LEVSIN/ANASP0.125 MG PO (23:12)
[2019-12-18 23:51] VITALS: BP 118/68
== END 2019-12-18 23:53 | disposition home or self-care (01) ==
LOC: D.ER 21:43
PROVIDERS: Family Medicine
DX: R10.32 Left lower quadrant pain (principal); J45.909 Unspecified asthma, uncomplicated; Z87.442 Personal history of urinary calculi

== ENCOUNTER 2020-01-17 09:00 | Outpatient (CLI) | payer MEDICARE ==
[2019-12-18 21:45] VITALS: BMI 38.9
[~2020-01-17 09:00] MED LIST changes: +CELEBREX200 MG PO; +LEVSIN/ANASP0.125 MG PO; +MUPIROCIN15 GM TOPICAL; +PEPCID INJ20 MG/2 ML IV; +ULTRAM50 MG PO
== END 2020-01-17 10:00 | disposition home or self-care (01) ==
LOC: D.MAMMO 09:00
PROVIDERS: ATTEND Family Medicine
DX: N64.4 Mastodynia (principal)

== ENCOUNTER → 2020-01-31 07:32 | Outpatient (CLI) | payer MEDICARE ==
[2019-12-18 21:45] VITALS: BMI 38.9
== END | disposition home or self-care (01) ==
LOC: D.US 01-25 11:00
PROVIDERS: ATTEND Family Medicine
DX: N63.21 Unspecified lump in the left breast, upper outer quadrant (principal)

== ENCOUNTER 2021-02-10 08:30 | Outpatient (CLI) | payer MEDICARE ==
[2019-12-18 21:45] VITALS: BMI 38.9
== END 2021-02-10 23:59 ==
LOC: D.MAMMO 08:30
PROVIDERS: ATTEND Family Medicine
DX: Z85.3 Personal history of malignant neoplasm of breast (principal)